=== PATIENT | male | born 2000 | race Caucasian/White ===

== ENCOUNTER 2019-01-05 16:25 | Emergency (ER) | payer MEDICAID ==
[~2019-01-05] VITALS: Ht 172.7 cm; Wt 72.6 kg
[2019-01-05 18:26] VITALS: BP 120/74
== END 2019-01-05 18:53 | disposition home or self-care (01) ==
LOC: EDBD 16:25 → ER 16:32
DX: S86.912A Strain of unspecified muscle(s) and tendon(s) at lower leg level, left leg, initial encounter (principal); X50.0XXA Overexertion from strenuous movement or load, initial encounter; Y93.67 Activity, basketball; Y99.8 Other external cause status; Y92.89 Other specified places as the place of occurrence of the external cause
CPT/HCPCS: 73562